=== PATIENT | male | born 1990 | race American Indian/Alaskan Native ===

== ENCOUNTER 2017-07-20 13:35 | Emergency (ER) | payer SELFPAY ==
--- NOTE | 2017-07-20 18:00 | Emergency Department Report ---
ED ENT HPI - General Chief complaint: Sore Throat Stated complaint: SORE THROAT AND NECK PAIN Time Seen by Provider: 07/20/17 17:51 Source: patient Mode of arrival: Ambulatory Limitations: No Limitations - History of Present Illness Initial comments: PT c/o sore throat and fever x 3 days. PT states Tylenol helped break the fever. PT states he has had strep throat frequently and this feels the same. PT denies cough or congestion. PT states his step son has had a recent runny nose but denies other sick contacts. MD complaint: sore throat -: Gradual, days(s) (3) Location: throat Severity: severe Severity scale (0 -10): 8 Quality: sharp Consistency: constant Improves with: other medication (Tylenol helps the fever ) Worsens with: swallowing, eating Associated Symptoms: fever, pain with swallowing, sore throat. denies: cough - Related Data Previous Rx's Medication Instructions Recorded Last Taken Type Amoxicillin 500 mg PO BID #20 capsule 07/20/17 Unknown Rx Allergies Allergy/AdvReac Type Severity Reaction Status Date / Time No Known Allergies Allergy Verified 03/31/16 21:23 ED Dental HPI - General Chief complaint: Sore Throat Stated complaint: SORE THROAT AND NECK PAIN Time Seen by Provider: 07/20/17 17:51 Source: patient Mode of arrival: Ambulatory Limitations: No Limitations - Related Data Previous Rx's Medication Instructions Recorded Last Taken Type Amoxicillin 500 mg PO BID #20 capsule 07/20/17 Unknown Rx Allergies Allergy/AdvReac Type Severity Reaction Status Date / Time No Known Allergies Allergy Verified 03/31/16 21:23 ED Review of Systems ROS: Stated complaint: SORE THROAT AND NECK PAIN Other details as noted in HPI Comment: All other systems reviewed and negative Constitutional: fever (subjective ), malaise. denies: chills ENT: throat pain. denies: congestion Respiratory: denies: cough Cardiovascular: denies: chest pain Gastrointestinal: denies: abdominal pain Musculoskeletal: myalgia ED Past Medical Hx - Past Medical History Previous Medical History?: No - Surgical History Additional Surgical History: right foot - Social History Smoking Status: Never Smoker Substance Use Type: None - Medications Home Medications: Home Medications Medication Instructions Recorded Confirmed Last Taken Type Amoxicillin 500 mg PO BID #20 capsule 07/20/17 Unknown Rx ED Physical Exam - General Limitations: No Limitations General appearance: alert, in no apparent distress - Head Head exam: Present: atraumatic, normocephalic, normal inspection - Eye Eye exam: Present: normal appearance, PERRL, EOMI. Absent: conjunctival injection - ENT ENT exam: Present: mucous membranes moist, TM's normal bilaterally, normal external ear exam - Expanded ENT Exam Expanded Mouth exam: Absent: drooling, trismus Throat exam: Positive: tonsillar erythema, tonsillomegaly. Negative: tonsillar exudate, R peritonsillar mass, L peritonsillar mass - Neck Neck exam: Present: normal inspection, tenderness, full ROM, lymphadenopathy - Respiratory Respiratory exam: Present: normal lung sounds bilaterally. Absent: respiratory distress, chest wall tenderness - Cardiovascular Cardiovascular Exam: Present: regular rate, normal rhythm, normal heart sounds - Extremities Exam Extremities exam: Present: normal inspection, full ROM - Back Exam Back exam: Present: normal inspection, full ROM. Absent: tenderness, CVA tenderness (R), CVA tenderness (L) - Neurological Exam Neurological exam: Present: alert, oriented X3, normal gait - Psychiatric Psychiatric exam: Present: normal affect, normal mood - Skin Skin exam: Present: warm, dry, intact, normal color ED Course Vital Signs 07/20/17 07/20/17 14:46 20:11 Temperature 98.9 F Pulse Rate 84 84 Respiratory 16 18 Rate Blood Pressure 138/96 Blood Pressure 147/97 [Left] O2 Sat by Pulse 98 Oximetry - Reevaluation(s) Reevaluation #1: 07/20/17 17:59 PT aware rapid strep pending. PT states he has recurrent strep throat. PT has not been treated with Bicillin. If rapid strep test positive, will treat with Bicillin. 07/20/17 19:14 PT aware of lab result. PT refusing Bicillin. PT states he just wants to go and "ride it out" - Pulse Oximetry Interpretation Digit-Finger Initial Pulse Oximetry Readin Actions Taken: none ED Medical Decision Making - Lab Data rapid strep positive - Differential Diagnosis strep pharyngitis, viral uri Critical Care Time: No Critical care attestation.: If time is entered above; I have spent that time in minutes in the direct care of this critically ill patient, excluding procedure time. ED Disposition Clinical Impression: Strep pharyngitis Disposition: DC- TO HOME OR SELFCARE Is pt being admited?: No Does the pt Need Aspirin: No Condition: Stable Instructions: Strep Throat (ED) Additional Instructions: Follow up with PCP in 3-5 days Return to ED if you have an increase in swelling of your throat, you can not swallow, or your are drooling Prescriptions: Amoxicillin 500 mg PO BID #20 capsule Referrals: PRIMARY CARE, [Primary Care Provider] - 3-5 Days DANISH YU MD [Staff Physician] - 3-5 Days [facility] [Outside] - 3-5 Days Forms: Work/School Release Form(ED) Time of Disposition: 19:17
[2017-07-20] MEDS ORDERED: BICILLIN L-A IM ONE (19:12)
[2017-07-20 20:12] VITALS: BP 147/97
== END 2017-07-20 20:12 | disposition home or self-care (01) ==
LOC: ED 13:35
DX: J02.0 Streptococcal pharyngitis (principal)
CPT/HCPCS: 87430; 99282

== ENCOUNTER 2017-07-24 14:48 | Emergency (ER) | payer SELFPAY ==
[2017-07-24 17:09] VITALS: BP 130/89
[2017-07-24 17:38] LABS: Basophils % (Auto) 0.5 % (0.0-1.8); Eosinophils % (Auto) 0.2 % (0.0-4.3); Hematocrit 46.6 % (35.5-45.6); Hemoglobin 15.4 gm/dl (11.8-15.2); Mean Corpuscular HGB Conc 33 % (32-34); Mean Corpuscular Hemoglobin 30 pg (28-32); Mean Corpuscular Volume 91 fl (84-94); Platelet Count 254 K/mm3 (140-440); Red Blood Count 5.14 M/mm3 (3.65-5.03); Red Cell Distribution Width 13.1 % (13.2-15.2); White Blood Count 10.7 K/mm3 (4.5-11.0)
[2017-07-24 17:56] LABS: Anion Gap 17 mmol/L; BUN/Creatinine Ratio 21.11; Blood Urea Nitrogen 19 mg/dL (9-20); Calcium 9.7 mg/dL (8.4-10.2); Carbon Dioxide 28 mmol/L (22-30); Chloride 100.3 mmol/L (98-107); Glucose 91 mg/dL (75-100); Potassium 4.6 mmol/L (3.6-5.0); Sodium 141 mmol/L (137-145)
[2017-07-24 18:20] LABS: Bilirubin,Urine NEG (Negative); Blood,Urine NEG (Negative); Ketones,Urine NEG (Negative); Leukocyte Esterase,Urine NEG (Negative); Mucus,Urine 2+ /HPF; Nitrite,Urine NEG (Negative); Protein,Urine <15 mg/dL mg/dL (Negative); Urobilinogen,Urine < 2.0 mg/dL (<2.0)
== END 2017-07-24 23:15 | disposition left against medical advice (07) ==
LOC: ED 14:48
DX: R31.9 Hematuria, unspecified (principal); Z53.21 Procedure and treatment not carried out due to patient leaving prior to being seen by health care provider
CPT/HCPCS: 36415; 80048; 81001; 85025; 87086

== ENCOUNTER 2017-07-29 12:08 | Emergency (ER) | payer SELFPAY ==
[2017-07-29 12:23] VITALS: BP 132/88
[2017-07-29 14:06] LABS: Bilirubin,Urine NEG (Negative); Blood,Urine NEG (Negative); Ketones,Urine NEG (Negative); Leukocyte Esterase,Urine NEG (Negative); Mucus,Urine 1+ /HPF; Nitrite,Urine NEG (Negative); Protein,Urine <15 mg/dL mg/dL (Negative)
--- NOTE | 2017-07-29 14:30 | Emergency Department Report ---
HPI - General Chief Complaint: Urogenital-Male Time Seen by Provider: 07/29/17 14:17 - HPI HPI: He is a 26-year-old male presents to ED complaining of seeing her bit of blood in his urine 5 days ago. Patient states he was here on the on the 24 of july for the same symptoms but had to leave because he had to go to work. Patient returns to be seen for the symptoms. Patient states that he has had no other episode of in his urine other than 5 days ago. Patient denies fevers/chills/nausea/vomiting/penile discharge/penile pain/ scrotum pain or swelling ED Past Medical Hx - Past Medical History Previous Medical History?: Yes Additional medical history: strept throat - Surgical History Past Surgical History?: Yes Additional Surgical History: right foot - Social History Smoking Status: Current Every Day Smoker Substance Use Type: Alcohol, Cocaine, Marijuana - Medications Home Medications: Home Medications Medication Instructions Recorded Confirmed Last Taken Type Amoxicillin 500 mg PO BID #20 capsule 07/20/17 Unknown Rx ED Review of Systems ROS: Stated complaint: URINATING BLOOD Other details as noted in HPI Constitutional: denies: chills, fever Eyes: denies: eye pain, eye discharge, vision change ENT: denies: ear pain, throat pain Respiratory: denies: cough, shortness of breath, wheezing Cardiovascular: denies: chest pain, palpitations Endocrine: no symptoms reported Gastrointestinal: denies: abdominal pain, nausea, diarrhea Genitourinary: hematuria. denies: urgency, dysuria, frequency, discharge, testicular pain, testicular mass Musculoskeletal: denies: back pain, joint swelling, arthralgia Skin: denies: rash, lesions Neurological: denies: headache, weakness, paresthesias Psychiatric: denies: anxiety, depression Hematological/Lymphatic: denies: easy bleeding, easy bruising Physical Exam - Physical Exam Vital Signs: Vital Signs 07/29/17 12:18 Temperature 98.3 F Pulse Rate 84 Respiratory 20 Rate Blood Pressure 132/88 O2 Sat by Pulse 99 Oximetry Physical Exam: GENERAL: Alert and oriented x3, no apparent distress, Normal Gait, atraumatic. HEAD: Head is normocephalic and a-traumatic. EYES: Extra ocular muscles are intact. Pupils are equal, round, and reactive to light and accommodation. LUNGS: Symetrical with respiration, No wheezing, no rales or crackles, CTAB. HEART: S1, S2 present, regular rate and rhythm without murmur, no rubs, no gallops. Non tender to palpation ABDOMEN: No organomegaly was noted,Positive bowel sounds, soft, and non- distended. . Nontender to palpation on all Quadrants, NO CVA tenderness. BACK: Full range of motion, no spinal tenderness, nontender to palpation. UROGENITAL: No scrotal mass, Scrotum non tender to palpation bilaterally, no hernia, no scars or penile discharge. SKIN: Warm and dry, No lesions, No ulceration or induration present. ED Course Vital Signs 07/29/17 12:18 Temperature 98.3 F Pulse Rate 84 Respiratory 20 Rate Blood Pressure 132/88 O2 Sat by Pulse 99 Oximetry ED Medical Decision Making - Medical Decision Making 26-year-old male presents with cystitis ED course, urinalysis positive for mild leukorrhea Discussed findings with the patient. Discussed patient to continue taking amoxicillin as he hasn't taken for strep throat. 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 Discussed further STD testing if concerned about STD. Patient states he is and only has sex with his . Vital signs are normal patient is in no acute distress. Critical care attestation.: If time is entered above; I have spent that time in minutes in the direct care of this critically ill patient, excluding procedure time. ED Disposition Clinical Impression: Cystitis Disposition: DC-01 TO HOME OR SELFCARE Is pt being admited?: No Does the pt Need Aspirin: No Condition: Stable Instructions: Sexually Transmitted Diseases (ED), Urinary Tract Infection in Men (ED) Additional Instructions: Keep decision antibiotics as you been taken Referrals: PRIMARY MD [facility] [Primary Care Provider] - 3-5 Days ISAIAS WARD MD [Referring] - 3-5 Days [facility] [Outside] - 3-5 Days [facility] [Outside] - 3-5 Days Forms: Accompanied Note, Work/School Release Form(ED) Time of Disposition: 14:19
== END 2017-07-29 14:52 | disposition home or self-care (01) ==
LOC: ED 12:08
DX: N30.90 Cystitis, unspecified without hematuria (principal); F17.200 Nicotine dependence, unspecified, uncomplicated; F14.10 Cocaine abuse, uncomplicated; F12.10 Cannabis abuse, uncomplicated
CPT/HCPCS: 81001; 87591; 99282